=== PATIENT | female | born 1975 | race Caucasian/White ===

== ENCOUNTER 2016-08-29 17:53 | Emergency (ER) | payer OTHER ==
[2016-08-29] MEDS ORDERED: CLEOCIN 150 MG CAPSULE ONE (18:28)
--- NOTE | 2016-08-29 18:28 | ERPHSYRPT ---
- History of Present Illness Time Seen by Provider: 08/29/16 18:17 Source: patient Exam Limitations: no limitations Patient Subjective Stated Complaint: PT REPORTS SHAVING VAGINAL AREA PT REPROTS RAZOR BURN-STATES THAT THERE IS AN AREA THAT IS [id number] AREA WITH DRAINAGE-REPORTS INTERMITTANT FEVER Triage Nursing Assessment: PT PINK WARM ET DRY-TEARFUL UPON ARRIVAL-RED SWOLLEN AREA NOTED TO LEFT LABIA-NO DRAINAGE AT THIS TIME Physician History: The patient is a 41-year-old female with her complaining of increasing pain, swelling, redness in her left labia after shaving the area a week ago. She has tried to drain fluid from the region without success. The area is hard. Timing/Duration: week(s) (1) Quality: painful Severity: severe Location: genitalia Possible Causes: other (shaving) Associated Symptoms: other (abscess) Allergies/Adverse Reactions: prochlorperazine [From Compazine] Allergy (Intermediate, Verified 08/29/16 18:12 ) Home Medications: Albuterol 17 gm IH UD 08/29/16 [History] Alprazolam 0.5 mg PO UD 08/29/16 [History] Hydrochlorothiazide 25 mg [hydroDIURIL 25 MG] 25 mg PO UD 08/29/16 [ History] Meloxicam 15 mg [Meloxicam 15 MG] 15 mg PO UD 08/29/16 [History] Omeprazole 20 MG [Prilosec 20 mg] 20 mg PO DAILY 08/29/16 [History] Ondansetron HCl [Zofran] 4 mg PO UD 08/29/16 [History] Hx Tetanus, Diphtheria Vaccination/Date Given: No Hx Influenza Vaccination/Date Given: No Hx Pneumococcal Vaccination/Date Given: No Immunizations Up to Date: Yes - Review of Systems Constitutional: Fever, No Chills Eyes: No Symptoms Ears, Nose, & Throat: No Symptoms Respiratory: Cough Cardiac: No Chest Pain, No Edema, No Syncope Abdominal/Gastrointestinal: No Abdominal Pain, No Nausea, No Vomiting, No Diarrhea Genitourinary Symptoms: No Dysuria Musculoskeletal: No Back Pain, No Neck Pain Skin: No Rash Neurological: No Dizziness, No Focal Weakness, No Sensory Changes Psychological: No Symptoms Endocrine: No Symptoms Hematologic/Lymphatic: No Symptoms Immunological/Allergic: No Symptoms All Other Systems: Reviewed and Negative - Past Medical History Pertinent Past Medical History: No - Past Surgical History Past Surgical History: Yes Female Surgical History: Hysterectomy, Tubal Ligation - Social History Smoking Status: Current every day smoker How long have you smoked: YRS Exposure to second hand smoke: No Drug Use: none Patient Lives Alone: No - Nursing Vital Signs Nursing Vital Signs: Initial Vital Signs Temperature 98.3 F Temperature Source Oral Pulse Rate 87 Respiratory Rate 22 Blood Pressure 134/78 Pain Intensity 6 - Physical Exam General Appearance: mild distress Eye Exam: PERRL/EOMI, eyes nml inspection Ears, Nose, Throat Exam: normal ENT inspection, pharynx normal, moist mucous membranes Neck Exam: normal inspection, non-tender, supple, full range of motion Respiratory Exam: normal breath sounds, lungs clear, No respiratory distress Cardiovascular Exam: regular rate/rhythm, normal heart sounds Gastrointestinal/Abdomen Exam: soft, mass, No tenderness Pelvic Exam: other (Examination of the external genitalia reveals a shaved genital area with a swollen, red, tender left labia. There are 2 healing scabs to the labia. Attempts to incise with an 11 blade and drained any pus were unsuccessful. The area was not fluctuant. The area was indurated. Incision only produced bright red blood.) Rectal Exam: not done Back Exam: normal inspection, normal range of motion, No CVA tenderness, No vertebral tenderness Extremity Exam: normal inspection, normal range of motion Neurologic Exam: alert, oriented x 3, cooperative, normal mood/affect, sensation nml, No motor deficits Skin Exam: normal color, warm, dry SpO2 Interpretation: normal SpO2: 98 Oxygen Delivery: Room Air - Progress Progress: unchanged Counseled pt/family regarding: diagnosis, need for follow-up - Departure Time of Disposition: 18:33 Departure Disposition: Home Clinical Impression: Abscess Condition: Stable Critical Care Time: No Additional Instructions: Take clindamycin as directed. Tylenol and Ibuprofen as needed. Warm compress as needed. Prescriptions: Clindamycin HCl 1 cap PO QID #40 capsule
[2016-08-29] MEDS ORDERED: TORAdol 30 mg Injection IM ONE (18:36)
[2016-08-29] MEDS ORDERED: NORCO 5/325 MG PO ONE (18:38)
[2016-08-29] MEDS ORDERED: NORCO 5/325 MG ONE (18:39)
[2016-08-29] MEDS ORDERED: TORAdol 30 mg Injection ONE (18:39)
[2016-08-29 18:48] VITALS: BP 128/68; PULSE 94; O2SAT 99
[2016-08-29] MEDS ORDERED: CLEOCIN 150 MG CAPSULE PO SCH (22:00)
== END 2016-08-29 18:47 | disposition home or self-care (01) ==
LOC: ED 17:53
DX: N76.4 Abscess of vulva (principal)
CPT/HCPCS: 96372; 99282; J1885